=== PATIENT | male | born 1995 | race Caucasian/White ===

== ENCOUNTER 2024-10-08 13:08 | Emergency (ER) | payer OTHER ==
[2024-10-08] MEDS ORDERED: MELOXICAM15 MG PO (13:14)
== END 2024-10-08 14:08 | disposition home or self-care (01) ==
LOC: ED 13:08
DX: S00.83XA Contusion of other part of head, initial encounter (principal); W22.8XXA Striking against or struck by other objects, initial encounter; Y93.89 Activity, other specified; Y92.89 Other specified places as the place of occurrence of the external cause; Y99.8 Other external cause status